=== PATIENT | female | born 1990 | race African-American/Black ===

== ENCOUNTER 2017-12-24 11:45 | Emergency (ER) | payer MEDICAID ==
[~2017-12-24] VITALS: Ht 165.1 cm; Wt 110.5 kg
[~2017-12-24 11:45] MED LIST: ALBU6.7H INH; CYCL-1 PO; DIPH-186 PO; NO HOME MEDS; NORCO10T PO; ONDA8TAB9 PO; ZOF4T PO
[2017-12-24 11:58] VITALS: BP 137/98
[2017-12-24 12:21] LABS: CLARITY,URINE CLEAR (Clear); COLOR,URINE STRAW (Yellow); GLUCOSE, URINE NEGATIVE (Neg); KETONES,URINE NEGATIVE (Neg); LEUKOCYTE ESTERASE ,URINE NEGATIVE (Neg); NITRITES, URINE NEGATIVE (Neg); OCCULT BLOOD,URINE TRACE-INTACT (Neg); PROTEIN,URINE NEGATIVE (Neg); URINE HCG NEGATIVE (NEG); UROBILINOGEN,URINE 0.2 E.U/dL (0.2-1.0)
[2017-12-24 12:23] LABS: UA COLLECTION TYPE CLN CATCH MIDSTREAM
[2017-12-24 12:35] LABS: BACTERIA,URINE FEW /HPF (Neg); RBC,URINE 0-2 /HPF (0-2); SQUAMOUS EPITHELIAL CELL,UR FEW /LPF (FEW); WBC,URINE 0-4 /HPF (0-4)
[2017-12-24] MEDS ORDERED: METR500T4 PO (13:40)
[2017-12-24] MEDS ORDERED: CefTRIAXone 250MG inj IM ONE (13:40)
[2017-12-24] MEDS: CefTRIAXone 250MG IM Kit w/LIDOcaine IM ONE (14:22)
[2017-12-24] MEDS: azithromycin 250mg tablet PO ONE (14:30)
== END 2017-12-24 14:38 | disposition home or self-care (01) ==
LOC: ER 11:45
DX: N76.0 Acute vaginitis (principal); Z86.14 Personal history of Methicillin resistant Staphylococcus aureus infection; Z79.899 Other long term (current) drug therapy
CPT/HCPCS: 36415; 81001; 81025; 87491; 87591; 96372; 99284; J0696

== ENCOUNTER 2020-04-19 03:06 | Emergency (ER) | payer MEDICAID ==
[~2020-04-19] VITALS: Ht 167.6 cm; Wt 110.0 kg
[~2020-04-19 03:06] MED LIST changes: -ALBU6.7H INH; +ALBU6.7H9 INH
[2020-04-19 03:15] VITALS: BP 126/87
[2020-04-19] MEDS ORDERED: FLUC150T22 PO (03:29)
[2020-04-19] MEDS ORDERED: fluconazole 100mg tablet PO ONE (03:30)
== END 2020-04-19 04:17 | disposition home or self-care (01) ==
LOC: ER 03:07
DX: N89.8 Other specified noninflammatory disorders of vagina (principal); Z86.14 Personal history of Methicillin resistant Staphylococcus aureus infection; Z79.899 Other long term (current) drug therapy
CPT/HCPCS: 99283

== ENCOUNTER 2020-10-06 10:03 | Emergency (ER) | payer MEDICAID ==
[~2020-10-06] VITALS: Ht 167.6 cm; Wt 105.0 kg
== END 2020-10-06 11:06 | disposition home or self-care (01) ==
LOC: ER 10:04
DX: O98.511 Other viral diseases complicating pregnancy, first trimester (principal); U07.1 COVID-19; R05 Cough; Z79.899 Other long term (current) drug therapy; Z3A.00 Weeks of gestation of pregnancy not specified
CPT/HCPCS: 99281

== ENCOUNTER 2023-09-30 07:17 | Emergency (ER) | payer BC, MEDICAID ==
[~2023-09-30] VITALS: Ht 167.6 cm; Wt 107.7 kg
[~2023-09-30 07:17] MED LIST changes: +ALBU6.7H14 INH; -ALBU6.7H9 INH
[2023-09-30] MEDS ORDERED: METH-797 PO (09:47)
[2023-09-30 11:02] VITALS: BP 124/95; PULSE 95; RESP 16; TEMP 98; O2SAT 98
== END 2023-09-30 11:03 | disposition home or self-care (01) ==
LOC: ER 07:17
DX: S16.1XXA Strain of muscle, fascia and tendon at neck level, initial encounter (principal); M79.89 Other specified soft tissue disorders; Y04.8XXA Assault by other bodily force, initial encounter; Y93.89 Activity, other specified; Y92.89 Other specified places as the place of occurrence of the external cause; Y99.8 Other external cause status
CPT/HCPCS: 70450; 70486; 70490; 71045; 99284